=== PATIENT | male | born 1975 ===

== ENCOUNTER 2017-02-25 10:23 | Emergency (ER) | payer SELFPAY ==
[2017-02-25 10:55] VITALS: BMI 24.4
[2017-02-25 10:56] VITALS: BP 122/66; PULSE 81; RESP 17; TEMP 98.2; O2SAT 99
[2017-02-25] MEDS ORDERED: Oxycodone/Acetaminophen 5/325 mg Tab PO STA (11:56)
[2017-02-25] MEDS ORDERED: Oxycodone/Acetaminophen 5/325 mg Tab ONE (12:11)
--- NOTE | 2017-02-25 12:22 | ED PDOC ---
Upper Extremity Pain/Injury Time Seen by Provider: 02/25/17 11:11 Chief Complaint (Nursing): Upper Extremity Problem/Injury Chief Complaint (Provider): Upper Extremity Problem/Injury History Per: Patient History/Exam Limitations: no limitations Onset/Duration Of Symptoms: Other (x 2 weeks) Current Symptoms Are (Timing): Still Present Additional Complaint(s): August is a 41 year old male who presents to the emergency department with left shoulder pain for 2 weeks. Patient states pain is worse with movement and palpations. Denies trauma and injury. Patient states he does heavy lifting at work. Admits to taking Motrin with mild relief. Last dosage at 08:00. PMD: No Family Provider Past Medical History Reviewed: Historical Data, Nursing Documentation, Vital Signs Vital Signs: Last Vital Signs Temp 98.2 F 02/25/17 10:55 Pulse 81 02/25/17 10:55 Resp 17 02/25/17 10:55 BP 122/66 02/25/17 10:55 Pulse Ox 99 02/25/17 10:55 - Medical History PMH: No Chronic Diseases - Surgical History Other surgeries: Right Foot Surgery - Family History Family History: States: Unknown Family Hx - Social History Alcohol: None Drugs: Denies - Home Medications Home Medications: Ambulatory Orders Medication Instructions Recorded Ibuprofen [Motrin] 600 mg PO Q6 PRN #20 tab 07/12/14 Sulfamethoxazole/Trimethoprim 1 tab PO BID #14 tab 07/12/14 [Bactrim DS 800 mg-160 mg] Cyclobenzaprine [Cyclobenzaprine 10 mg PO TID #20 tab 02/25/17 HCl] Ibuprofen [Motrin] 600 mg PO Q6 #20 tab 02/25/17 - Allergies Allergies/Adverse Reactions: Allergies Allergy/AdvReac Type Severity Reaction Status Date / Time No Known Allergies Allergy Verified 02/25/17 11:15 Review of Systems ROS Statement: Except As Marked, All Systems Reviewed And Found Negative Musculoskeletal: Positive for: Shoulder Pain (Left) Physical Exam - Reviewed Nursing Documentation Reviewed: Yes Vital Signs Reviewed: Yes - Physical Exam Appears: Positive for: Well, Non-toxic, No Acute Distress Head Exam: Positive for: ATRAUMATIC, NORMAL INSPECTION, NORMOCEPHALIC Skin: Positive for: Normal Color, Warm, DRY Eye Exam: Positive for: EOMI, Normal appearance, PERRL ENT: Positive for: Normal ENT Inspection Neck: Positive for: Normal, Painless ROM Cardiovascular/Chest: Positive for: Regular Rate, Rhythm Respiratory: Positive for: CNT, Normal Breath Sounds Gastrointestinal/Abdominal: Positive for: Normal Exam, Bowel Sounds, Soft Back: Positive for: Normal Inspection Extremity: Positive for: Normal ROM (FROM but with pain), Other (Tenderness to Lateral Aspect of Left Shoulder, no ecchymosis noted, no edema noted) Neurologic/Psych: Positive for: Alert, Oriented - ECG O2 Sat by Pulse Oximetry: 99 (RA) Pulse Ox Interpretation: Normal Medical Decision Making Medical Decision Making: Time: 11:56 Plan: - Percocet 5/325 mg Tab - Left Shoulder X-Ray Time: 12:43 Left Shoulder X-Ray FINDINGS: BONES: Normal. No fracture. JOINTS: Normal. Glenohumeral and acromioclavicular joints preserved. No osteoarthritis. SOFT TISSUES: Normal. OTHER FINDINGS: None. IMPRESSION: Normal radiographs of the left shoulder. Scribe Attestation: Documented by Thad Mansfield, acting as a scribe for MORGAN Badillo Provider Scribe Attestation: All medical record entries made by the Scribe were at my direction and personally dictated by me. I have reviewed the chart and agree that the record accurately reflects my personal performance of the history, physical exam, medical decision making, and the department course for this patient. I have also personally directed, reviewed, and agree with the discharge instructions and disposition. Disposition - Clinical Impression Clinical Impression: Shoulder pain - Patient ED Disposition Is Patient to be Admitted: No - Disposition Referrals: Rome Sánchez MD [Medical Doctor] - Disposition: Routine/Home Disposition Time: 16:15 Condition: STABLE Prescriptions: Cyclobenzaprine [Cyclobenzaprine HCl] 10 mg PO TID #20 tab Ibuprofen [Motrin] 600 mg PO Q6 #20 tab Instructions: Shoulder Pain (ED) Forms: [facility] (Vietnamese)
--- NOTE | 2017-02-25 12:45 | RAD ---
PROCEDURE: Radiographs of the Left Shoulder HISTORY: Pain. No history of recent/ related trauma provided COMPARISON: No prior. FINDINGS: BONES: Normal. No fracture. JOINTS: Normal. Glenohumeral and acromioclavicular joints preserved. No osteoarthritis. SOFT TISSUES: Normal. OTHER FINDINGS: None. IMPRESSION: Normal radiographs of the left shoulder.
== END 2017-02-25 14:39 | disposition home or self-care (01) ==
LOC: H.ER 10:23
DX: M25.512 Pain in left shoulder (principal)